=== PATIENT | male | born 1955 | race Caucasian/White ===

== ENCOUNTER 2018-03-23 20:01 | Inpatient (IN) | payer BC ==
[~2018-03-23] VITALS: Ht 165.1 cm; Wt 63.0 kg
[2018-03-24] MEDS ORDERED: SODIUM CHLORIDE 0.9% 1,000 ML IV ONE (02:18)
[2018-03-24 03:07] LABS: BASOPHILS % 0.5 % (0.0-2.0); HEMATOCRIT. 32.5 % (42.0-52.0); HEMOGLOBIN. 10.9 g/dL (14.0-18.0); LYMPHOCYTES % 17.4 % (20.0-50.0); MEAN CORPUSCULAR HEMOGLOBIN 31.5 pg (28.0-32.0); MEAN CORPUSCULAR VOLUME 94.1 fL (80.0-94.0); MONOCYTES % 8.4 % (2.0-8.0); NEUTROPHILS % 70.7 % (40.0-76.0); PLATELET 231 x1000/uL (130-400); RED BLOOD CELL COUNT 3.45 mill/uL (4.7-6.1); RED CELL DISTRIBUTION WIDTH 12.7 % (11.6-14.6)
[2018-03-24 03:14] LABS: CHLORIDE 108 mEq/L (98-107); PROTHROMBIN TIME 10.2 sec (9.1-11.1)
[2018-03-24] MEDS ORDERED: VANCOMYCIN 1 G PREMIX 200 ML IV ONE (04:45)
[2018-03-24] MEDS ORDERED: PIPERACILLIN/TAZ 3.375G PREMIX 50 ML IV ONE (04:45)
[2018-03-24] MEDS ORDERED: SODIUM CHLORIDE 0.9% 1,000 ML IV SCH ×2 (05:06→14:15)
[2018-03-24 08:00] VITALS: BP 130/63
[2018-03-24 09:30] VITALS: BP 130/63
[2018-03-24 12:00] VITALS: BP 123/61
[2018-03-24] MEDS ORDERED: VANCOMYCIN 1 G PREMIX 200 ML IV SCH (14:15)
[2018-03-24] MEDS ORDERED: ONDANSETRON HCL 4MG/2ML INJ IV PRN (14:15)
[2018-03-24] MEDS ORDERED: HYDROMORPHONE HCL/PF 2MG/ML CPJ IV PRN (14:15)
[2018-03-24] MEDS ORDERED: CLONIDINE 0.1MG TABLET PO PRN (14:15)
[2018-03-24] MEDS ORDERED: LORAZEPAM 2MG/ML CPJ IV PRN (14:15)
[2018-03-24] MEDS: ENOXAPARIN 40MG/0.4ML SYR SUBCUT SCH (15:48)
[2018-03-24 16:00] VITALS: BP 136/67
[2018-03-24] MEDS ORDERED: PNEUMOCOCCAL 23-VAL P-SAC VAC 0.5 ML IM ONE (16:15)
[2018-03-24] MEDS ORDERED: INFLUENZA VIRUS VACCINE(AFLURIA) 0.5ML SYR IM ONE (16:15)
[2018-03-24] MEDS ORDERED: DEXTROSE 50% WATER 50ML SYRINGE IV PRN (16:45)
[2018-03-24] MEDS: VANCOMYCIN 750 MG PREMIX 150 ML IV SCH (17:17)
[2018-03-24] MEDS: BLOOD SUGAR DIAGNOSTIC STRIP TEST SCH ×2 (17:22→21:00)
[2018-03-24] MEDS: INSULIN LISPRO 100 UNITS/ML SUBCUT SCH ×2 (17:44→21:00)
[2018-03-24 20:00] VITALS: BP 55/55
[2018-03-24 22:15] LABS: CLARITY URINE CLEAR (CLEAR); COLOR URINE YELLOW (YELLOW); KETONES URINE NEGATIVE (NEGATIVE); LEUKOCYTE ESTERASE URINE NEGATIVE (NEGATIVE); NITRITE URINE NEGATIVE (NEGATIVE); OCCULT BLOOD URINE NEGATIVE (NEGATIVE); PH URINE 6.5 (4.5-8.0); PROTEIN URINE NEGATIVE (NEGATIVE); SPECIFIC GRAVITY URINE 1.011 (1.005-1.030); UROBILINOGEN URINE 0.2 E.U./dL (0.2-1.0)
[2018-03-24 22:31] LABS: *BENZODIAZEPINES SCREEN URINE NEGATIVE (NEGATIVE)
[2018-03-24 22:32] LABS: *COCAINE SCREEN URINE NEGATIVE (NEGATIVE); CANNABINOID URINE SCREEN NEGATIVE (NEGATIVE); METHADONE URINE SCREEN NEGATIVE (NEGATIVE); OPIATES URINE SCREEN NEGATIVE (NEGATIVE); PHENCYCLIDINE URINE SCREEN NEGATIVE (NEGATIVE)
[2018-03-24 22:33] LABS: *AMPHETAMINES SCREEN URINE NEGATIVE (NEGATIVE); *BARBITURATES SCREEN URINE NEGATIVE (NEGATIVE)
[2018-03-25] VITALS: BP 128/68
[2018-03-25 04:00] VITALS: BP 128/76
[2018-03-25] MEDS: VANCOMYCIN 750 MG PREMIX 150 ML IV SCH ×2 (05:53→17:18)
[2018-03-25] MEDS: BLOOD SUGAR DIAGNOSTIC STRIP TEST SCH ×4 (07:51→21:08)
[2018-03-25 08:00] VITALS: BP 114/58
[2018-03-25] MEDS: ENOXAPARIN 40MG/0.4ML SYR SUBCUT SCH (09:46)
[2018-03-25] MEDS: INSULIN LISPRO 100 UNITS/ML SUBCUT SCH ×4 (09:50→21:08)
[2018-03-25] MEDS ORDERED: IOHEXOL-350 100 ML BOTTLE ONE (10:39)
[2018-03-25 12:00] VITALS: BP 114/58
[2018-03-25 16:00] VITALS: BP 136/64
[2018-03-25 17:03] LABS: BASOPHILS % 0.5 % (0.0-2.0); EOSINOPHILS % 3.1 % (0.0-5.0); HEMATOCRIT. 30.7 % (42.0-52.0); HEMOGLOBIN. 10.5 g/dL (14.0-18.0); LYMPHOCYTES % 18.2 % (20.0-50.0); MEAN CORPUSCULAR HEMOGLOBIN 32.1 pg (28.0-32.0); MEAN CORPUSCULAR VOLUME 93.9 fL (80.0-94.0); MEAN PLATELET VOLUME 9.1 fl (7.4-10.4); MONOCYTES % 7.9 % (2.0-8.0); NEUTROPHILS % 70.3 % (40.0-76.0); PLATELET 221 x1000/uL (130-400); RED BLOOD CELL COUNT 3.27 mill/uL (4.7-6.1); RED CELL DISTRIBUTION WIDTH 12.4 % (11.6-14.6)
[2018-03-25 17:12] LABS: CHLORIDE 104 mEq/L (98-107)
[2018-03-25 20:00] VITALS: BP 132/63
[2018-03-26] VITALS: BP 124/61
[2018-03-26 04:00] VITALS: BP 111/52
[2018-03-26 04:52] LABS: CHLORIDE 108 mEq/L (98-107)
[2018-03-26 05:00] LABS: VANCOMYCIN TROUGH 15.9 ug/mL (5.0-10.0)
[2018-03-26] MEDS: VANCOMYCIN 750 MG PREMIX 150 ML IV SCH ×2 (06:01→17:11)
[2018-03-26 06:12] LABS: BASOPHILS % 0.6 % (0.0-2.0); EOSINOPHILS % 2.7 % (0.0-5.0); LYMPHOCYTES % 16.3 % (20.0-50.0); MEAN CORPUSCULAR HEMOGLOBIN 32.3 pg (28.0-32.0); MEAN CORPUSCULAR VOLUME 93.7 fL (80.0-94.0); MEAN PLATELET VOLUME 9.3 fl (7.4-10.4); MONOCYTES % 6.7 % (2.0-8.0); NEUTROPHILS % 73.7 % (40.0-76.0); PLATELET 215 x1000/uL (130-400); RED CELL DISTRIBUTION WIDTH 12.1 % (11.6-14.6)
[2018-03-26] MEDS: ACETAMINOPHEN 325MG TABLET PO PRN ×2 (06:24→23:55)
[2018-03-26] MEDS: BLOOD SUGAR DIAGNOSTIC STRIP TEST SCH ×4 (06:24→21:24)
[2018-03-26] MEDS: INSULIN LISPRO 100 UNITS/ML SUBCUT SCH ×4 (07:50→21:24)
[2018-03-26 08:00] VITALS: BP 104/56
[2018-03-26] MEDS: ENOXAPARIN 40MG/0.4ML SYR SUBCUT SCH (09:14)
[2018-03-26 12:00] VITALS: BP 111/62
[2018-03-26 16:00] VITALS: BP 108/54
[2018-03-26 20:00] VITALS: BP 118/63
[2018-03-27] VITALS: BP 122/51
[2018-03-27 04:00] VITALS: BP 119/61
[2018-03-27] MEDS: VANCOMYCIN 750 MG PREMIX 150 ML IV SCH ×2 (05:38→17:00)
[2018-03-27] MEDS: BLOOD SUGAR DIAGNOSTIC STRIP TEST SCH ×4 (06:22→21:02)
[2018-03-27] MEDS: INSULIN LISPRO 100 UNITS/ML SUBCUT SCH ×4 (07:32→21:30)
[2018-03-27 08:00] VITALS: BP 112/56
[2018-03-27] MEDS: ENOXAPARIN 40MG/0.4ML SYR SUBCUT SCH (08:25)
[2018-03-27 12:00] VITALS: BP 147/68
[2018-03-27 16:00] VITALS: BP 138/65
[2018-03-27 20:00] VITALS: BP 124/58
[2018-03-28] VITALS: BP 107/57
[2018-03-28 04:00] VITALS: BP 119/79
[2018-03-28] MEDS: VANCOMYCIN 750 MG PREMIX 150 ML IV SCH ×2 (06:02→17:38)
[2018-03-28] MEDS: BLOOD SUGAR DIAGNOSTIC STRIP TEST SCH ×4 (06:22→20:51)
[2018-03-28 08:00] VITALS: BP 109/60
[2018-03-28] MEDS: ENOXAPARIN 40MG/0.4ML SYR SUBCUT SCH (09:22)
[2018-03-28] MEDS: INSULIN LISPRO 100 UNITS/ML SUBCUT SCH ×4 (09:26→21:23)
[2018-03-28 12:00] VITALS: BP 115/54
[2018-03-28 16:00] VITALS: BP 127/62
[2018-03-28 20:00] VITALS: BP 121/61
[2018-03-28] MEDS: INSULIN GLARGINE UD 100 UNITS/ML SYR SUBCUT SCH (21:23)
[2018-03-29] VITALS (7 sets, daily range): BP systolic 106–135; BP diastolic 57–68
[2018-03-29] MEDS: VANCOMYCIN 750 MG PREMIX 150 ML IV SCH ×2 (05:54→17:24)
[2018-03-29] MEDS: BLOOD SUGAR DIAGNOSTIC STRIP TEST SCH ×4 (06:24→21:35)
[2018-03-29] MEDS: INSULIN LISPRO 100 UNITS/ML SUBCUT SCH ×4 (07:17→22:45)
[2018-03-29] MEDS: ENOXAPARIN 40MG/0.4ML SYR SUBCUT SCH (08:32)
[2018-03-29] MEDS: INSULIN GLARGINE UD 100 UNITS/ML SYR SUBCUT SCH ×2 (11:19→22:07)
[2018-03-30] VITALS: BP 126/61
[2018-03-30 04:00] VITALS: BP 115/56
[2018-03-30 05:55] LABS: CHLORIDE 107 mEq/L (98-107)
[2018-03-30] MEDS: VANCOMYCIN 750 MG PREMIX 150 ML IV SCH (05:55)
[2018-03-30 06:14] LABS: BASOPHILS % 0.6 % (0.0-2.0); EOSINOPHILS % 4.6 % (0.0-5.0); HEMOGLOBIN. 10.2 g/dL (14.0-18.0); LYMPHOCYTES % 22.1 % (20.0-50.0); MEAN CORPUSCULAR VOLUME 93.4 fL (80.0-94.0); MEAN PLATELET VOLUME 9.1 fl (7.4-10.4); MONOCYTES % 7.8 % (2.0-8.0); NEUTROPHILS % 64.9 % (40.0-76.0); PLATELET 254 x1000/uL (130-400); RED BLOOD CELL COUNT 3.21 mill/uL (4.7-6.1); RED CELL DISTRIBUTION WIDTH 12.5 % (11.6-14.6)
[2018-03-30 07:21] LABS: PHOSPHORUS 4.5 mg/dL (2.5-4.9)
[2018-03-30] MEDS: BLOOD SUGAR DIAGNOSTIC STRIP TEST SCH ×2 (07:31→11:38)
[2018-03-30] MEDS: INSULIN LISPRO 100 UNITS/ML SUBCUT SCH ×2 (07:31→11:55)
[2018-03-30 08:00] VITALS: BP 122/60
[2018-03-30] MEDS: ENOXAPARIN 40MG/0.4ML SYR SUBCUT SCH (08:12)
[2018-03-30] MEDS: INSULIN GLARGINE UD 100 UNITS/ML SYR SUBCUT SCH (09:54)
[2018-03-30 10:00] VITALS: BP_SYST 118; BP_SYST 122; BP_DIAS 60; BP_DIAS 62
[2018-03-30 12:00] VITALS: BP 131/62
[2018-03-30 13:09] VITALS: BP 113/60
== END 2018-03-30 13:56 | disposition home or self-care (01) | DRG 629 ==
LOC: ER 20:01 → 6EST 03-24 05:09 → ENRESERV 03-24 07:21
PROVIDERS: ADMIT Internal Medicine Nephrology; ATTEND Internal Medicine Nephrology
PROC: 0HDRXZZ Extraction of Toe Nail, External Approach (ICD-10-PCS; principal; 2018-03-27)
PROC: 0QBQ0ZZ Excision of Right Toe Phalanx, Open Approach (ICD-10-PCS; 2018-03-27)
PROC: 02HV33Z Insertion of Infusion Device into Superior Vena Cava, Percutaneous Approach (ICD-10-PCS; 2018-03-27)
PROC: B548ZZA Ultrasonography of Superior Vena Cava, Guidance (ICD-10-PCS; 2018-03-27)
PROC: B5181ZA Fluoroscopy of Superior Vena Cava using Low Osmolar Contrast, Guidance (ICD-10-PCS; 2018-03-27)
DX: E11.69 Type 2 diabetes mellitus with other specified complication (principal); E11.52 Type 2 diabetes mellitus with diabetic peripheral angiopathy with gangrene; M86.8X7 Other osteomyelitis, ankle and foot; L03.031 Cellulitis of right toe; E11.42 Type 2 diabetes mellitus with diabetic polyneuropathy; D63.8 Anemia in other chronic diseases classified elsewhere; E11.621 Type 2 diabetes mellitus with foot ulcer; F17.210 Nicotine dependence, cigarettes, uncomplicated; I10 Essential (primary) hypertension; L97.519 Non-pressure chronic ulcer of other part of right foot with unspecified severity; Z71.6 Tobacco abuse counseling
CPT/HCPCS: 36415; 36569; 71045; 73630; 73721; 75635; 76937; 77001; 80048; 80202; 80305; 82962; 83036; 83605; 83735; 84100; 90686; 90732; 93005; 96365; 96368; 99285; C1725; J1650; J1815; J2543; J3370; J7030; J7040; J7050; Q9967